=== PATIENT | female | born 1970 | race Caucasian/White ===

== ENCOUNTER 2023-05-01 08:20 | Day surgery (SDC) | payer BC ==
[~2023-05-01] VITALS: Ht 172.7 cm; Wt 95.3 kg
[~2023-05-01 08:20] MED LIST: Advil200 M1 PO; BUTASPCAF PO; DIPH50 PO; OXYACE5T PO; RXOXYACE PO
[2023-05-01] MEDS ORDERED: PRAM.125 (08:33)
[2023-05-01] MEDS ORDERED: 1/2 NS 250ml250 ML (08:33)
[2023-05-01 11:06] VITALS: BP 99/70
== END 2023-05-01 11:05 | disposition home or self-care (01) ==
LOC: ORSCSDS 08:20
PROVIDERS: Internal Medicine Gastroenterology
PROC: 0DJD8ZZ Inspection of Lower Intestinal Tract, Via Natural or Artificial Opening Endoscopic (ICD-10-PCS; principal; 2023-05-01 09:45)
PROC: 0DB58ZX Excision of Esophagus, Via Natural or Artificial Opening Endoscopic, Diagnostic (ICD-10-PCS; principal; 2023-05-01 09:45)
PROC: 0DB98ZX Excision of Duodenum, Via Natural or Artificial Opening Endoscopic, Diagnostic (ICD-10-PCS; principal; 2023-05-01 09:45)
PROC: 0DB78ZX Excision of Stomach, Pylorus, Via Natural or Artificial Opening Endoscopic, Diagnostic (ICD-10-PCS; principal; 2023-05-01 09:45)
DX: K21.9 Gastro-esophageal reflux disease without esophagitis (principal); R10.13 Epigastric pain; K62.5 Hemorrhage of anus and rectum; R19.4 Change in bowel habit; Z86.010 Personal history of colon polyps; K57.30 Diverticulosis of large intestine without perforation or abscess without bleeding; K64.8 Other hemorrhoids; Z87.891 Personal history of nicotine dependence; Z79.899 Other long term (current) drug therapy
CPT/HCPCS: 88305; 88342; J2704; J7120

== ENCOUNTER 2024-09-15 04:39 | Day surgery (SDC) | payer BC ==
[~2024-09-15 04:39] MED LIST changes: +1/2 NS 250ml250 ML; +PRAM.125; +Sod Ferric Gluc Complx/Sucrose 125 MG in NS 100 ML IV SCH
[2024-09-15 15:04] VITALS: BP 157/88
[2024-09-15] MEDS ORDERED: IRON BISGLYCINA28 MG PO (15:07)
== END 2024-09-15 16:18 | disposition home or self-care (01) ==
LOC: ATC 04:39
DX: D50.9 Iron deficiency anemia, unspecified (principal); G25.81 Restless legs syndrome; Z79.899 Other long term (current) drug therapy
CPT/HCPCS: 96365; J2916

== ENCOUNTER 2024-09-17 04:54 | Day surgery (SDC) | payer BC ==
[~2024-09-17 04:54] MED LIST changes: +IRON BISGLYCINA28 MG PO
[2024-09-17 15:15] VITALS: BP 157/89
== END 2024-09-17 16:21 | disposition home or self-care (01) ==
LOC: ATC 04:54
DX: D50.9 Iron deficiency anemia, unspecified (principal); R51.9 Headache, unspecified; G25.81 Restless legs syndrome
CPT/HCPCS: 96365; J2916

== ENCOUNTER 2024-09-18 01:42 | Day surgery (SDC) | payer BC ==
[~2024-09-18 01:42] MED LIST changes: -Sod Ferric Gluc Complx/Sucrose 125 MG in NS 100 ML IV SCH
[2024-09-18] MEDS ORDERED: Sod Ferric Gluc Complx/Sucrose 125 MG in NS 100 ML IV SCH (06:00)
[2024-09-18 14:56] VITALS: BP 160/96
== END 2024-09-18 15:59 | disposition home or self-care (01) ==
LOC: ATC 01:42
DX: D50.9 Iron deficiency anemia, unspecified (principal); G25.81 Restless legs syndrome; Z79.899 Other long term (current) drug therapy
CPT/HCPCS: 96365; J2916

== ENCOUNTER 2025-01-14 01:09 | Day surgery (SDC) | payer BC ==
[~2025-01-14 01:09] MED LIST changes: +Sod Ferric Gluc Complx/Sucrose 125 MG in NS 100 ML IV SCH
[2025-01-14 15:00] VITALS: BP 135/81
== END 2025-01-14 16:00 | disposition home or self-care (01) ==
LOC: ATC 01:09
DX: D50.9 Iron deficiency anemia, unspecified (principal); R51.9 Headache, unspecified; G25.81 Restless legs syndrome
CPT/HCPCS: 96365; J2916

== ENCOUNTER 2025-01-25 03:59 | Day surgery (SDC) | payer BC ==
[2025-01-25 08:59] VITALS: BP 149/93
== END 2025-01-25 10:04 | disposition home or self-care (01) ==
LOC: ATC 03:59
DX: D50.9 Iron deficiency anemia, unspecified (principal); R51.9 Headache, unspecified; G25.81 Restless legs syndrome; K21.9 Gastro-esophageal reflux disease without esophagitis; M21.41 Flat foot [pes planus] (acquired), right foot; M21.42 Flat foot [pes planus] (acquired), left foot; M21.071 Valgus deformity, not elsewhere classified, right ankle; M21.072 Valgus deformity, not elsewhere classified, left ankle
CPT/HCPCS: 96365; J2916

== ENCOUNTER 2025-06-22 01:42 | Day surgery (SDC) | payer BC ==
[2025-06-22 07:35] VITALS: BP 153/86
[2025-06-24] MEDS ORDERED: Sod Ferric Gluc Complx/Sucrose 125 MG in NS 100 ML IV SCH (01:00)
== END 2025-06-22 08:35 | disposition home or self-care (01) ==
LOC: ATC 01:42
DX: D50.9 Iron deficiency anemia, unspecified (principal); G25.81 Restless legs syndrome; K21.9 Gastro-esophageal reflux disease without esophagitis; R51.9 Headache, unspecified
CPT/HCPCS: 96365; J2916

== ENCOUNTER 2025-06-24 02:51 | Day surgery (SDC) | payer BC ==
[~2025-06-24 02:51] MED LIST changes: -Sod Ferric Gluc Complx/Sucrose 125 MG in NS 100 ML IV SCH
[2025-06-24 10:11] VITALS: BP 141/86
[2025-06-24] MEDS ORDERED: Sod Ferric Gluc Complx/Sucrose 125 MG in NS 100 ML IV SCH (10:25)
== END 2025-06-24 11:22 | disposition home or self-care (01) ==
LOC: ATC 02:51
DX: D50.9 Iron deficiency anemia, unspecified (principal); G25.81 Restless legs syndrome; K21.9 Gastro-esophageal reflux disease without esophagitis
CPT/HCPCS: 96365; J2916

== ENCOUNTER 2025-06-28 01:16 | Day surgery (SDC) | payer BC ==
[~2025-06-28 01:16] MED LIST changes: +Sod Ferric Gluc Complx/Sucrose 125 MG in NS 100 ML IV SCH
[2025-06-28 14:07] VITALS: BP 146/102
== END 2025-06-28 15:14 | disposition home or self-care (01) ==
LOC: ATC 01:16
DX: D50.9 Iron deficiency anemia, unspecified (principal); K21.9 Gastro-esophageal reflux disease without esophagitis; R51.9 Headache, unspecified
CPT/HCPCS: 96365; J2916

== ENCOUNTER 2025-07-21 01:21 | Day surgery (SDC) | payer BC ==
[2025-07-19 15:27] LABS: BASOPHILS ABSOLUTE AUTO 0.06 K/mm3 (0.00-0.23); BASOPHILS PERCENT AUTO 1 % (0-2); EOSINOPHILS ABSOLUTE AUTO 0.14 K/mm3 (0.00-0.68); EOSINOPHILS PERCENT AUTO 2 % (0-6); Hematocrit 22.7 % (33.0-51.0); Hemoglobin 7.4 g/dL (11.5-16.0); IMMATURE GRAN ABSOLUTE AUTO 0.04 K/mm3 (0.00-0.10); IMMATURE GRAN PERCENT AUTO 1 % (0-1); LYMPHOCYTES ABSOLUTE AUTO 1.63 K/mm3 (0.84-5.20); LYMPHOCYTES PERCENT AUTO 22 % (21-46); MONOCYTES ABSOLUTE AUTO 0.48 K/mm3 (0.16-1.47); MONOCYTES PERCENT AUTO 7 % (4-13); Mean Corpuscular HGB Conc 32.6 g/dL (31.5-36.5); Mean Corpuscular Volume 88 fL (80-100); NEUTROPHILS ABSOLUTE AUTO 5.04 K/mm3 (1.96-9.15); NEUTROPHILS PERCENT AUTO 68 % (41-73); NRBC ABSOLUTE 0.00 K/mm3 (0.00-0.02); NRBC Auto 0.0 /100 WBC (0.0-0.2); Platelet Count 363 K/mm3 (150-400); RDW Coefficient Variation 14.1 % (11.7-14.2); RDW Standard Deviation 44.9 fL (35.1-46.3)
[2025-07-21] VITALS (7 sets, daily range): BP systolic 114–143; BP diastolic 70–82
[~2025-07-21 01:21] MED LIST changes: -Sod Ferric Gluc Complx/Sucrose 125 MG in NS 100 ML IV SCH
[2025-07-21] MEDS ORDERED: NS 250 ML IV SCH (06:00)
== END 2025-07-21 11:14 | disposition home or self-care (01) ==
LOC: ATC 01:21 → EDSTATUS 07-19 13:15 → LAB FUT 07-19 13:15
PROVIDERS: Legal Medicine
DX: D50.0 Iron deficiency anemia secondary to blood loss (chronic) (principal); D50.9 Iron deficiency anemia, unspecified; K62.5 Hemorrhage of anus and rectum; E78.5 Hyperlipidemia, unspecified
CPT/HCPCS: 36415; 36430; 85025; 86850; 86900; 86901; 86923; J7050; P9016

== ENCOUNTER 2025-08-09 00:32 | Day surgery (SDC) | payer BC ==
[2025-08-09] MEDS ORDERED: Sod Ferric Gluc Complx/Sucrose 125 MG in NS 100 ML IV SCH (01:00)
[2025-08-09] MEDS ORDERED: FERRLECIT (07:53)
[2025-08-09 07:54] VITALS: BP 153/100
== END 2025-08-09 09:01 | disposition home or self-care (01) ==
LOC: ATC 00:32
DX: D50.9 Iron deficiency anemia, unspecified (principal)
CPT/HCPCS: 96365; J2916